=== PATIENT | female | born 1980 | race Two or more races ===

== ENCOUNTER → 2022-10-01 | Outpatient (CLI) | payer OTHER ==
[2022-10-01 08:38] LABS: Basophils # (auto) 0.1 10 ^3/uL (0-0.2); Basophils % (auto) 1.2 % (0.0-2.0); Eosinophils # (auto) 0.2 10 ^3/uL (0-0.8); Hematocrit 42.2 % (36.0-46.0); Hemoglobin 14.4 g/dL (12.2-16.2); Mean Corpuscular Hemoglobin 30.4 pg (28.0-32.0); Mean Corpuscular Hgb Conc. 34.1 g/dL (32.0-36.0); Mean Corpuscular Volume 89.1 fL (80.0-100.0); Monocytes # (auto) 0.4 10 ^3/uL (0-1.3); Monocytes % (auto) 7.7 % (0.0-12.0); Neutrophils # (auto) 2.7 10 ^3/uL (1.6-8.6); Neutrophils % (auto) 50.1 % (37.0-80.0); Nucleated Red Blood Cells % 0.1 %; Red Blood Cells 4.74 10^6/uL (4.0-5.20); Red Cell Distribution Width 14.2 % (11.8-14.3); White Blood Cell 5.4 10^3/uL (4.4-10.8)
[2022-10-01 08:46] LABS: Urine Bacteria FEW /hpf (None Seen); Urine Blood Negative /uL (Negative); Urine Mucus FEW (None Seen); Urine Specific Gravity 1.024 (1.001-1.035); Urine WBC 5 /hpf (0 - 5)
[2022-10-01 09:12] LABS: Albumin 3.8 g/dL (3.4-5.0); Calcium 8.8 mg/dL (8.5-10.1)
[2022-10-01 09:16] LABS: BUN/Creatinine Ratio 15.5 (10.0-20.0); Bilirubin, Total 1.2 mg/dL (0.2-1.0); Total Protein 7.2 g/dL (6.4-8.2)
[2022-10-01 09:21] LABS: Prolactin 6.85 ng/mL (2.8-29.2)
[2022-10-01 09:22] LABS: Follicle Stimulating Hormone 4.65 IU/L (SEE BELOW); Leuteinizing Hormone 10.4 IU/L
== END | disposition home or self-care (01) ==
LOC: LAB 08:22
PROVIDERS: ATTEND Student in an Organized Health Care Education/Training Program
DX: R19.7 Diarrhea, unspecified (principal); R73.9 Hyperglycemia, unspecified; R03.0 Elevated blood-pressure reading, without diagnosis of hypertension; N92.6 Irregular menstruation, unspecified
CPT/HCPCS: 36415; 80053; 80061; 81001; 83001; 83002; 83036; 84146; 84403; 84443; 85025

== ENCOUNTER 2024-12-28 08:07 | Outpatient (CLI) | payer OTHER ==
[~2024-12-28 08:07] MED LIST: IBUP-1456 PO; METH-1182 PO
[2024-12-28 08:55] LABS: Hematocrit 42.8 % (36.0-46.0); Hemoglobin 14.8 g/dL (12.2-16.2); Mean Corpuscular Hemoglobin 31.4 pg (28.0-32.0); Mean Corpuscular Volume 90.7 fL (80.0-100.0); Nucleated Red Blood Cells % 0.1 %
[2024-12-28 09:06] LABS: Urine Protein, UAD Negative (Negative)
[2024-12-28 09:33] LABS: Alanine Aminotransferase 25 U/L (7-40); Alkaline Phosphatase 72 U/L (46-116); Anion Gap 8 (5-15); BUN/Creatinine Ratio 11.7 (10.0-20.0); Calcium 9.3 mg/dL (8.7-10.4); Carbon Dioxide 28 mmol/L (20-31); Chloride 104 mmol/L (98-107); Glucose 83 mg/dL (74-106); Potassium 4.0 mmol/L (3.5-5.1); Sodium 140 mmol/L (136-145); Total Protein 6.9 g/dL (5.7-8.2); Triglycerides 62 mg/dL (< 150)
[2024-12-28 09:34] LABS: Albumin 4.3 g/dL (3.2-4.8); Cholesterol 183 mg/dL (< 200)
[2024-12-28 09:35] LABS: Bilirubin, Total 0.7 mg/dL (0.2-1.0)
[2024-12-28 10:19] LABS: Blood Urea Nitrogen 9 mg/dL (9-23); HDL Cholesterol 80 mg/dL (40-59)
[2024-12-28 10:43] LABS: Follicle Stimulating Hormone 11.96 IU/L (SEE BELOW)
[2024-12-28 10:46] LABS: Free T4 (Free Thyroxine) 1.03 ng/dL (0.89-1.76)
[2024-12-30 23:06] LABS: IgE Cottonwood 0.19 kU/L (Class 0/I); IgE Elm, American 0.21 kU/L (Class 0/I); IgE Johnson Grass 1.39 kU/L (Class II); IgE Mouse Urine <0.10 kU/L (Class 0); IgE Mugwort 0.10 kU/L (Class 0/I); IgE Ragweed, Short 0.20 kU/L (Class 0/I); IgE Rye, Perennial 6.29 kU/L (Class IV); IgE Tri a 19(w-5 gliadin) <0.10 kU/L (Class 0); T007-IgE Oak, White 0.36 kU/L (Class I)
== END 2024-12-28 17:00 | disposition home or self-care (01) ==
LOC: LAB 08:07
PROVIDERS: ATTEND Student in an Organized Health Care Education/Training Program
DX: E55.9 Vitamin D deficiency, unspecified (principal); N92.6 Irregular menstruation, unspecified; R03.0 Elevated blood-pressure reading, without diagnosis of hypertension; R73.9 Hyperglycemia, unspecified; R21 Rash and other nonspecific skin eruption; Z79.899 Other long term (current) drug therapy
CPT/HCPCS: 36415; 80053; 80061; 81001; 82306; 82670; 82785; 83001; 83002; 83036; 84439; 84443; 85025; 86003